=== PATIENT | female | born 1970 | race Caucasian/White ===

== ENCOUNTER → 2020-03-13 | Outpatient (CLI) | payer OTHER | LOC: M LABSMTC 12:13 | PROVIDERS: ATTEND Family Medicine | DX: Z03.818 Encounter for observation for suspected exposure to other biological agents ruled out (principal); Z11.59 Encounter for screening for other viral diseases | CPT/HCPCS: C9803; U0003 ==

== ENCOUNTER → 2023-01-06 | Outpatient (CLI) | payer OTHER | LOC: M WUC 11:50 | PROVIDERS: ATTEND Internal Medicine Cardiovascular Disease | DX: R07.82 Intercostal pain (principal) ==